=== PATIENT | female | born 1985 | race African-American/Black ===

== ENCOUNTER 2017-02-12 01:59 | Emergency (ER) | payer MEDICAID ==
[~2017-02-12] VITALS: Ht 167.6 cm; Wt 88.0 kg
[~2017-02-12 01:59] MED LIST: ETON1IMP I-DERMAL
[2017-02-12 02:09] VITALS: BP 136/67; PULSE 129; RESP 16; TEMP 98.6; O2SAT 98
[2017-02-12 02:34] VITALS: BP 142/73; PULSE 108; RESP 16; O2SAT 98
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
[2017-02-12] MEDS ORDERED: LIDOCAINE HCL 1% 50 ML VIAL INFIL ONE (02:45)
[2017-02-12] MEDS ORDERED: TETANUS/DIPHTHERIA TOXOID ADULT 0.5 ML VIAL IM ONE (02:45)
[2017-02-12] MEDS ORDERED: KETOROLAC TROMETHAMINE 60 MG/2 ML (IM) VIAL IM ONE (02:45)
[2017-02-12] MEDS ORDERED: BUPIVACAINE HCL PF 0.5% 10 ML VIAL INFIL ONE (02:45)
--- NOTE | 2017-02-12 03:24 | RADRPT ---
EXAM DATE/TIME: 02/12/2017 02:45 [facility] COMPARISON: No previous studies available for comparison. INDICATIONS : Pain and lacerations to the first and second digits of the left foot from a fall. MEDICAL HISTORY : None. SURGICAL HISTORY : None. ENCOUNTER: Initial ACUITY: 1 day PAIN SCORE: 10/10 LOCATION: Left foot FINDINGS: Three view examination of the left foot demonstrates no soft tissue swelling, dislocation, or fractur e. The tarsal bones appear intact. The interphalangeal and metatarsophalangeal joints are intact. The calcaneus is intact. Bony mineralization is normal. CONCLUSION: 1. No acute bony abnormality. No radiopaque foreign body. Manuel Thomas MD on February 12, 2017 at 3:21 Board Certified Radiologist. This report was verified electronically.
--- NOTE | 2017-02-12 03:25 | RADRPT ---
EXAM DATE/TIME: 02/12/2017 02:51 [facility] COMPARISON: No previous studies available for comparison. INDICATIONS : Pain and lacerations to the first and second digits of the left foot from a fall. MEDICAL HISTORY : None. SURGICAL HISTORY : None. ENCOUNTER: Initial ACUITY: 1 day PAIN SCORE: 10/10 LOCATION: Left foot FINDINGS: Three view exam was performed of the left ankle. The bony structures are in normal alignment. No ev idence of fracture, dislocation, or soft tissue swelling. The ankle mortise is intact. No radiopaqu e foreign bodies are seen. Bony mineralization is normal. CONCLUSION: Unremarkable examination of the left ankle. Manuel Thomas MD on February 12, 2017 at 3:23 Board Certified Radiologist. This report was verified electronically.
[2017-02-12] MEDS ORDERED: IBUP-232 PO (03:47)
[2017-02-12] MEDS ORDERED: CEPH500T PO (03:47)
== END 2017-02-12 04:12 | disposition home or self-care (01) ==
LOC: NEPD 01:59
DX: S91.112A Laceration without foreign body of left great toe without damage to nail, initial encounter (principal); S93.402A Sprain of unspecified ligament of left ankle, initial encounter; Z23 Encounter for immunization; Z86.59 Personal history of other mental and behavioral disorders; Z87.19 Personal history of other diseases of the digestive system; Z86.69 Personal history of other diseases of the nervous system and sense organs; W01.0XXA Fall on same level from slipping, tripping and stumbling without subsequent striking against object, initial encounter; Y93.02 Activity, running; Y92.007 Garden or yard of unspecified non-institutional (private) residence as the place of occurrence of the external cause
CPT/HCPCS: 12001; 73610; 73630; 90471; 90714; 96372; 99284; E0113; J1885

== ENCOUNTER 2017-02-24 10:12 | Emergency (ER) | payer MEDICAID ==
[~2017-02-24] VITALS: Ht 167.6 cm; Wt 90.0 kg
[~2017-02-24 10:12] MED LIST changes: +CEPH500T PO; +IBUP-232 PO
[2017-02-24 10:15] VITALS: BP 114/73; PULSE 88; RESP 16; TEMP 98.2; O2SAT 98
--- NOTE | 2017-02-24 10:24 | PD ---
HPI Chief Complaint: Wound/Suture/Staple Re-Check Time Seen by Provider: 10:22 Travel History International Travel<30 days: No Contact w/Intl Traveler<30days: No Traveled to known affect area: No History of Present Illness HPI 31-year-old female here for suture removal. Lacerated left great toe on 02/12. Wound has been healing well. PFSH Past Medical History Blood Disorders: No Anxiety: Yes Depression: No Cancer: No Cardiovascular Problems: No Chemotherapy: No Diminished Hearing: No Endocrine: No Gastrointestinal Disorders: Yes GERD: Yes Genitourinary: No Hepatitis: No Hiatal Hernia: Yes Immune Disorder: No Psychiatric: Yes Respiratory: No Immunizations Current: Yes Migraines: Yes Radiation Therapy: No Seizures: Yes (NOT TAKING ANY MEDS) Ulcer: No ?: Not LMP: 06/2016-IMPLANT : 2 Para: 2 Miscarriage: 0 : 0 Past Surgical History Abdominal Surgery: Yes (C SEC) AICD: No Section: Yes (X 2) Joint Replacement: No Pacemaker: No Other Surgery: No Social History Alcohol Use: Yes ("sometimes") Tobacco Use: No Substance Use: Yes (marijuana ) Allergies-Medications (Allergen,Severity, Reaction): Coded Allergies: Contrast Media (Unverified Allergy, Severe, VOMITING, 02/24/17) Topamax (Unverified Allergy, Severe, DIZZINESS,WEAKNESS,LIGHT SENSITIVITY , 02/24/17) Dilantin (Verified Allergy, Unknown, Dizziness, burning of head, 02/24/17) Reported Meds & Prescriptions Reported Meds & Active Scripts Active Ibuprofen 600 Mg Tab 600 Mg PO TID PRN Nexplanon Implant (Etonogestrel Implant) 68 Mg Imp 68 Mg I-DERMAL ONCE Review of Systems General / Constitutional: No: Fever Skin: No Rash Physical Exam Narrative GENERAL: Well appearing female in no acute distress SKIN: Focused skin assessment warm/dry. MUSCULOSKELETAL: Left great toe laceration well healed, sutures intact NEUROLOGICAL: Awake and alert. Normal speech. PSYCHIATRIC: Appropriate mood and affect; insight and judgment normal. Data Data Last Documented VS Vital Signs Date Time Temp Pulse Resp B/P Pulse Ox O2 Delivery O2 Flow Rate FiO2 02/24/17 10:15 98.2 88 16 114/73 98 MDM Medical Decision Making Medical Screen Exam Complete: Yes Emergency Medical Condition: Yes Medical Record Reviewed: Yes Differential Diagnosis 31-year-old female here for suture removal of left great toe laceration 02/12. Wound appears well healing, sutures will be removed. Narrative Course Sutures removed Diagnosis Primary Impression: Visit for suture removal Disposition: 01 DISCHARGE HOME Condition: Stable Lexis Harrell MD Feb 24, 2017 10:24
== END 2017-02-24 10:36 | disposition home or self-care (01) ==
LOC: PHEFT 10:12
DX: Z48.02 Encounter for removal of sutures (principal)
CPT/HCPCS: 99281

== ENCOUNTER 2017-03-24 19:28 | Emergency (ER) | payer MEDICAID ==
[~2017-03-24] VITALS: Ht 167.6 cm; Wt 89.2 kg
[~2017-03-24 19:28] MED LIST changes: -CEPH500T PO
[2017-03-24 19:39] VITALS: BP 117/76; PULSE 104; RESP 18; TEMP 100.7; O2SAT 96
--- NOTE | 2017-03-24 20:03 | PD ---
HPI Chief Complaint: ENT Complaint Time Seen by Provider: 19:55 Travel History International Travel<30 days: No Contact w/Intl Traveler<30days: No Traveled to known affect area: No History of Present Illness HPI PATIENT C/O SORE THROAT ALONG WITH FEVER, BODY ACHES, BUT WITHOUT N/V/D/ABDPAIN/ ...OCCASIONAL COUGH, BUT NO CP. NO AGGRAVATING OR ALLEVIATING FACTORS PFSH Past Medical History Blood Disorders: No Anxiety: Yes Depression: No Cancer: No Cardiovascular Problems: No Chemotherapy: No Diminished Hearing: No Endocrine: No Gastrointestinal Disorders: Yes GERD: Yes Genitourinary: No Hepatitis: No Hiatal Hernia: Yes Immune Disorder: No Psychiatric: Yes Respiratory: No Immunizations Current: Yes Migraines: Yes Radiation Therapy: No Seizures: Yes (NOT TAKING ANY MEDS) Ulcer: No ?: Not : 2 Para: 2 Miscarriage: 0 : 0 Past Surgical History Abdominal Surgery: Yes (C SEC) AICD: No Section: Yes (X 2) Joint Replacement: No Pacemaker: No Other Surgery: No Social History Alcohol Use: Yes ("sometimes") Tobacco Use: Yes Substance Use: Yes (marijuana ) Allergies-Medications (Allergen,Severity, Reaction): Coded Allergies: Contrast Media (Unverified Allergy, Severe, VOMITING, 02/24/17) Topamax (Unverified Allergy, Severe, DIZZINESS,WEAKNESS,LIGHT SENSITIVITY , 02/24/17) Dilantin (Verified Allergy, Unknown, Dizziness, burning of head, 02/24/17) Reported Meds & Prescriptions Reported Meds & Active Scripts Active Ibuprofen 600 Mg Tab 600 Mg PO TID PRN Nexplanon Implant (Etonogestrel Implant) 68 Mg Imp 68 Mg I-DERMAL ONCE Review of Systems Except as stated in HPI: all other systems reviewed are Neg General / Constitutional: Positive: Fever HENT: Positive: Sore Throat Respiratory: Positive: Cough Physical Exam Narrative GENERAL: SKIN: Warm and dry. NO RASH HEAD: Atraumatic. Normocephalic. EYES: Pupils equal and round. No scleral icterus. No injection or drainage. ENT: No nasal bleeding or discharge. Mucous membranes pink and moist. ERYTHEMATOUS BUT WITHOUT EXUDATE, ANT CERVICAL LAD NOTED. NECK: Trachea midline. No JVD. CARDIOVASCULAR: Regular rate and rhythm. RESPIRATORY: No accessory muscle use. Clear to auscultation. Breath sounds equal bilaterally HOWEVER SOME RONCHI ON LLL GASTROINTESTINAL: Abdomen soft, non-tender, nondistended. Hepatic and splenic margins not palpable. MUSCULOSKELETAL: Extremities without clubbing, cyanosis, or edema. No obvious deformities. NEUROLOGICAL: Awake and alert. No obvious cranial nerve deficits. Motor grossly within normal limits. Five out of 5 muscle strength in the arms and legs. Normal speech. PSYCHIATRIC: Appropriate mood and affect; insight and judgment normal. Data Data Last Documented VS Vital Signs Date Time Temp Pulse Resp B/P Pulse Ox O2 Delivery O2 Flow Rate FiO2 03/24/17 20:32 101.6 03/24/17 19:48 18 03/24/17 19:39 104 117/76 96 Orders Group A Rapid Strep Screen (03/24/17 20:03) Influenzae A/B Antigen (03/24/17 20:03) Chest, Single Ap (03/24/17 20:03) Strep Culture (Group A) (03/24/17 20:00) MDM Medical Decision Making Medical Screen Exam Complete: Yes Emergency Medical Condition: Yes Medical Record Reviewed: Yes Differential Diagnosis PNA V BRONCHITIS V PHARYNGITIS V FLU V STREP Narrative Course FLU/STREP NEG, CXR NEG FOR PNA. PATIENT CLINICALLY HAS BRONCHITIS WILL WRITE FOR TYL#3, ZPAK, MEDROL CORA AND ALBUTEROL Diagnosis Primary Impression: ACUTE BRONCHITIS Med/Other Pt SpecificInfo: Prescription(s) given Scripts Methylprednisolone Dosepak (Medrol Dosepak)4 Mg Dspk4 Mg PO DIRECTED #1 DSPK Per Pharmacist direction Prov:Cristóbal Ureña MD 03/24/17 Codeine-Acetaminophen 30-300 mg Tab1 Tab PO Q4H PRN (BREAKTHROUGH PAIN) #15 TAB Prov:Cristóbal Ureña MD 03/24/17 Azithromycin (Zithromax Z-Cora)250 Mg [id number] Mg PO DIRECTED #1 DSPK 500 MG (2 tabs) day 1, then 1 tab days 2-5. Prov:Cristóbal Ureña MD 03/24/17 Albuterol 6.7 GM Inh (Proventil Hfa 6.7 GM Inh)90 Mcg/Act Aer1 Puff INH Q4H PRN (SHORTNESS OF BREATH) #1 INHALER Prov:Cristóbal Ureña MD 03/24/17 Disposition: 01 DISCHARGE HOME Condition: Stable Cristóbal Ureña MD Mar 24, 2017 20:03
--- NOTE | 2017-03-24 20:22 | RADRPT ---
EXAM DATE/TIME: 03/24/2017 20:11 [facility] COMPARISON: CHEST SINGLE AP, July 16, 2011, 21:17. INDICATIONS : Fever, flu-like symptoms for 3 days MEDICAL HISTORY : None. SURGICAL HISTORY : None. ENCOUNTER: Initial ACUITY: 3 days PAIN SCORE: 0/10 LOCATION: Bilateral chest FINDINGS: A single view of the chest demonstrates the lungs to be symmetrically aerated without evidence of mas s, infiltrate or effusion. The cardiomediastinal contours are unremarkable. Osseous structures are intact. CONCLUSION: No acute disease. Darshan Schulz MD FACR on March 24, 2017 at 20:20 Board Certified Radiologist. This report was verified electronically.
[2017-03-24 20:32] VITALS: TEMP 101.6
[2017-03-24] MEDS ORDERED: ALBU6.7H INH (21:05)
[2017-03-24] MEDS ORDERED: ZITHTAB PO (21:05)
[2017-03-24] MEDS ORDERED: MEDR4PAK PO (21:05)
[2017-03-24] MEDS ORDERED: CODE30TA2 PO (21:05)
[2017-03-24] MEDS ORDERED: KETOROLAC TROMETHAMINE 60 MG/2 ML (IM) VIAL IM ONE (21:15)
[2017-03-24 21:28] VITALS: BP 118/68; PULSE 92; RESP 18; O2SAT 97
== END 2017-03-24 21:31 | disposition home or self-care (01) ==
LOC: PHED 19:28
DX: J20.9 Acute bronchitis, unspecified (principal); K21.9 Gastro-esophageal reflux disease without esophagitis
CPT/HCPCS: 71010; 87081; 87804; 87880; 96372; 99284; J1885